=== PATIENT | male | born 1985 | race Caucasian/White ===

== ENCOUNTER 2021-05-21 14:09 | Emergency (ER) | payer BC ==
[2021-05-21] MEDS ORDERED: ONDANSETRON 4 MG/2 ML VIAL ONE (15:06)
[2021-05-21] MEDS ORDERED: MORPHINE 4 MG/ML SYR ONE (15:06)
[2021-05-21] MEDS ORDERED: NA CHLORIDE 0.9% 1,000 ML ONE ×2 (15:06→17:23)
[2021-05-21 15:12] LABS: Absolute Lymphocytes (CBC) 1.3 K/uL (0.7-4.9); Basophils % 0.2 % (0-1.3); Hematocrit 46.2 % (39.6-49.0); Lymphocytes % 5.9 % (15.3-44.8); MPV 8.3 fL (7.6-11.3); RBC Red Blood Cell Count 5.02 M/uL (4.33-5.43)
[2021-05-21] MEDS ORDERED: KETOROLAC 30 MG/ML INJ ONE (16:08)
[2021-05-21 16:11] LABS: ALT/SGPT 41 U/L (12-78); AST/SGOT 25 U/L (15-37); Albumin 4.4 g/dL (3.4-5.0); Alkaline Phosphatase 80 U/L (45-117); BUN Blood Urea Nitrogen 20 mg/dL (7-18); Bicarbonate 24 mmol/L (21-32); Bilirubin Direct 0.2 mg/dL (0-0.2); Bilirubin Total 0.8 mg/dL (0.2-1.0); Glucose Level 77 mg/dL (74-106); Lipase 28 U/L (73-393); Potassium 3.8 mmol/L (3.5-5.1); Protein, Total 8.2 g/dL (6.4-8.2); Sodium Level 144 mmol/L (136-145)
--- NOTE | 2021-05-21 16:43 | RAD REPORT ---
EXAM DESCRIPTION: CTAbdomen Pelvis W Contrast - 05/21/2021 4:28 pm CLINICAL HISTORY: Abdominal pain. ABD PAIN COMPARISON: No comparisons TECHNIQUE: Biphasic CT imaging of the abdomen and pelvis was performed with 100 ml non-ionic IV cont rast. All CT scans are performed using dose optimization technique as appropriate and may include automated exposure control or mA/KV adjustment according to patient size. FINDINGS: The lung bases are clear. The liver, spleen, pancreas, adrenal glands and kidneys are within normal limits. No bowel obstruction, free air, free fluid or abscess. The appendix is normal. No evidence of signi ficant lymphadenopathy. No suspicious bony findings. IMPRESSION: No acute intra-abdominal or pelvic finding.
[2021-05-21] MEDS ORDERED: METOCLOPRAMIDE 10 MG/2mL INJ ONE (17:24)
--- NOTE | 2021-05-21 18:43 | ER ---
Nurse's Notes [facility] Name: Artemio Pillai Age: 35 yrs Sex: Male : 1985 Arrival Date: 05/21/2021 Time: 14:13 Bed 15 Private MD: Diagnosis: Vomiting;Diarrhea, unspecified Presentation: 05/21 14:20 Chief complaint: Patient states: N/V/D today. Lower back pain also. Unknown fever. ll1 Coronavirus screen: Client denies travel out of the [place] in the last 14 days. At this time, the client does not indicate any symptoms associated with coronavirus-19. Ebola Screen: Patient denies travel to an Ebola-affected area in the 21 days before illness onset. Initial Sepsis Screen: Does the patient meet any 2 criteria? No. Patient's initial sepsis screen is negative. Does the patient have a suspected source of infection? Yes: Acute abdominal pain. Risk Assessment: Do you want to hurt yourself or someone else? Patient reports no desire to harm self or others. Onset of symptoms was May 21, 2021. 14:20 Method Of Arrival: Ambulatory [facility] 14:20 Acuity: [place] 3 ll1 Triage Assessment: 15:05 General: Appears. tr6 Historical: - Allergies: 14:22 Amoxicillin; ll1 - PMHx: 14:22 None; ll1 - PSHx: 14:22 None; ll1 - Immunization history:: Client reports receiving the 2nd dose of the Covid vaccine, Flu vaccine is up to date. - Social history:: Smoking status: Patient denies any tobacco usage or history of. Screenin:29 Abuse screen: Denies threats or abuse. Nutritional screening: No deficits noted. tr6 Tuberculosis screening: No symptoms or risk factors identified. Fall Risk None identified. Assessment: 15:05 General: Appears distressed, uncomfortable, Behavior is cooperative, restless. Pain: tr6 Complains of pain in pt c/o lower back pain currently, but states that he had abdominal pain earlier today. Neuro: No deficits noted. Level of Consciousness is awake. Cardiovascular: No deficits noted. Respiratory: No deficits noted. GI: Reports nausea. : No deficits noted. EENT: No deficits noted. Derm: No deficits noted. Musculoskeletal: No deficits noted. 16:19 Reassessment: pt transported to CT via wheelchair. tr6 16:32 Reassessment: pt returned to room from CT. tr6 Vital Signs: 14:20 BP 122 / 106; Pulse 74; Resp 17; Temp 97.6; Pulse Ox 97% ; Weight 61.23 kg; Height 5 ll1 ft. 7 in. (170.18 cm); Pain 8/10; 18:53 BP 100 / 67; Pulse 87; Resp 18; Temp 98; Pulse Ox 100% on R/A; tr6 14:20 Body Mass Index 21.14 (61.23 kg, 170.18 cm) ll1 ED Course: 14:13 Patient arrived in ED. ds1 14:22 Triage completed. ll1 14:23 Arm band placed on. ll1 14:23 Patient placed in an exam room, on a stretcher. ll1 14:24 Siddhartha Smart PA is PHCP. [facility] 14:24 Parish Smith MD is Attending Physician. [facility] 14:28 Iesha Nihcolas RN is Primary Nurse. tr6 14:29 Resting quietly. Awaiting ED provider evaluation. tr6 14:29 Patient has correct armband on for positive identification. Bed in low position. Call tr6 light in reach. Pulse ox on. NIBP on. Door closed. Noise minimized. Visitors limited. Lights dimmed. Moved to private room. 14:29 No provider procedures requiring assistance completed. tr6 15:04 Inserted saline lock: 20 gauge in right antecubital area, using aseptic technique. tr6 Blood collected. 16:28 CT Abd/Pelvis - IV Contrast Only In Process Unspecified. EDMS 18:53 IV discontinued, intact, bleeding controlled, No redness/swelling at site. Pressure ss dressing applied. Administered Medications: 15:04 Drug: NS 0.9% 1000 ml Route: IV; Rate: 1 bolus; Site: right antecubital; tr6 15:04 Drug: morphine 4 mg Route: IVP; Site: right antecubital; tr6 16:33 Follow up: Response: No adverse reaction tr6 15:04 Drug: Zofran (Ondansetron) 4 mg Route: IVP; Site: right antecubital; tr6 16:33 Follow up: Response: No adverse reaction tr6 15:49 Drug: Ketorolac 15 mg Route: IVP; Site: right antecubital; tr6 16:33 Follow up: Response: No adverse reaction tr6 17:08 Drug: Reglan (metoCLOPramide) 20 mg Route: IVP; Site: right antecubital; tr6 17:33 Follow up: Response: No adverse reaction tr6 17:08 Drug: NS 0.9% 1000 ml Route: IV; Rate: 1 bolus; Site: right antecubital; tr6 Outcome: 18:43 Discharge ordered by MD. sylvester 18:53 Discharged to home ambulatory, with family. 18:53 Condition: good 18:53 Discharge instructions given to patient, family, Instructed on discharge instructions, follow up and referral plans. Demonstrated understanding of instructions, follow-up care, Prescriptions given X 1. 18:54 Discharged to home ambulatory. tr6 18:54 Condition: improved 18:54 Discharge instructions given to patient, Instructed on discharge instructions, follow up and referral plans. Demonstrated understanding of instructions, follow-up care, medications, Prescriptions given X 1. 18:54 Patient left the ED. tr6 Signatures: Dispatcher [employer] EDMS Siddhartha Smart PA PA jmm Sanford, Demi ds1 Nereida Goss RN RN ss Robby Bryant RN RN ll1 Iesha Nicholas RN RN tr6
--- NOTE | 2021-05-21 18:44 | EDPHYS ---
Physician Documentation [facility] Name: Artemio Pillai Age: 35 yrs Sex: Male : 1985 Arrival Date: 05/21/2021 Time: 14:13 Bed 15 Private MD: ED Physician Parish Smith HPI: 05/21 14:34 This 35 yrs old Male presents to ER via Ambulatory with complaints of Back jmm Pain, Abdominal Pain. 14:34 The patient presents with abdominal pain. Onset: The symptoms/episode began/occurred jmm gradually, today. Associated signs and symptoms: Pertinent positives: diarrhea, vomiting. The symptoms are described as achy, intermittent. Modifying factors: The symptoms are alleviated by nothing, the symptoms are aggravated by nothing. It is unknown whether or not the patient has had similar symptoms in the past. Patient denies infectious exposure, recent abx use, denies recent travel. Historical: - Allergies: 14:22 Amoxicillin; ll1 - PMHx: 14:22 None; ll1 - PSHx: 14:22 None; ll1 - Immunization history:: Client reports receiving the 2nd dose of the Covid vaccine, Flu vaccine is up to date. - Social history:: Smoking status: Patient denies any tobacco usage or history of. ROS: 14:34 Constitutional: Negative for fever, chills, and weight loss, Cardiovascular: Negative jmm for chest pain, palpitations, and edema, Respiratory: Negative for shortness of breath, cough, wheezing, and pleuritic chest pain. 14:34 Abdomen/GI: Positive for abdominal pain, nausea and vomiting, diarrhea. 14:34 All other systems are negative. Exam: 14:34 Constitutional: This is a well developed, well nourished patient who is awake, alert, jmm and in no acute distress. Head/Face: atraumatic. Eyes: EOMI, no conjunctival erythema appreciated ENT: Moist Mucus Membranes Neck: Trachea midline, Supple Chest/axilla: Normal chest wall appearance and motion. Cardiovascular: Regular rate and rhythm. No edema appreciated Respiratory: Normal respirations, no respiratory distress appreciated 14:34 Back: Normal ROM Skin: General appearance color normal MS/ Extremity: Moves all extremities, no obvious deformities appreciated, no edema noted to the lower extremities Neuro: Awake and alert, normal gait Psych: Behavior is normal, Mood is normal, Patient is cooperative and pleasant 14:34 Abdomen/GI: Inspection: abdomen appears normal, Bowel sounds: normal, Palpation: soft, mild abdominal tenderness, in all quadrants. Vital Signs: 14:20 BP 122 / 106; Pulse 74; Resp 17; Temp 97.6; Pulse Ox 97% ; Weight 61.23 kg; Height 5 ll1 ft. 7 in. (170.18 cm); Pain 8/10; 18:53 BP 100 / 67; Pulse 87; Resp 18; Temp 98; Pulse Ox 100% on R/A; tr6 14:20 Body Mass Index 21.14 (61.23 kg, 170.18 cm) ll1 MDM: 14:32 Patient medically screened. [facility] 18:42 Data reviewed: vital signs, nurses notes. Counseling: I had a detailed discussion with [facility] the patient and/or guardian regarding: the historical points, exam findings, and any diagnostic results supporting the discharge/admit diagnosis, lab results, radiology results, the need for outpatient follow up, to return to the emergency department if symptoms worsen or persist or if there are any questions or concerns that arise at home. ED course: CT negative. Patient is able to tolerate PO in the ED. Patient is otherwise given strict return precautions. Patient understood and agrees with the plan of care. . 05/21 14:33 Order name: Basic Metabolic Panel; Complete Time: 16:12 [facility] 05/21 14:33 Order name: CBC with Diff [facility] 05/21 14:33 Order name: Hepatic Function; Complete Time: 16:12 [facility] 05/21 14:33 Order name: Lipase; Complete Time: 16:12 [facility] 05/21 15:29 Order name: CT Abd/Pelvis - IV Contrast Only; Complete Time: 16:45 [facility] 05/21 14:33 Order name: IV Saline Lock; Complete Time: 15:04 [facility] 05/21 14:33 Order name: Labs collected and sent; Complete Time: 15:04 [facility] 05/21 15:20 Order name: Labs - recollect needed: recollect green top/ hemolyzed; Complete Time: eb 15:38 05/21 16:53 Order name: PO challenge; Complete Time: 17:03 [facility] Administered Medications: 15:04 Drug: NS 0.9% 1000 ml Route: IV; Rate: 1 bolus; Site: right antecubital; tr6 15:04 Drug: morphine 4 mg Route: IVP; Site: right antecubital; tr6 16:33 Follow up: Response: No adverse reaction tr6 15:04 Drug: Zofran (Ondansetron) 4 mg Route: IVP; Site: right antecubital; tr6 16:33 Follow up: Response: No adverse reaction tr6 15:49 Drug: Ketorolac 15 mg Route: IVP; Site: right antecubital; tr6 16:33 Follow up: Response: No adverse reaction tr6 17:08 Drug: Reglan (metoCLOPramide) 20 mg Route: IVP; Site: right antecubital; tr6 17:33 Follow up: Response: No adverse reaction tr6 17:08 Drug: NS 0.9% 1000 ml Route: IV; Rate: 1 bolus; Site: right antecubital; tr6 Disposition: 18:58 Co-signature as Attending Physician, Parish Smith MD. rn Disposition Summary: 05/21/21 18:43 Discharge Ordered Location: Home [facility] Condition: Stable [facility] Diagnosis - Vomiting jm - Diarrhea, unspecified [facility] Followup: [facility] - With: Private Physician - When: 2 - 3 days - Reason: Recheck today's complaints, Continuance of care, Re-evaluation by your physician Discharge Instructions: - Discharge Summary Sheet [facility] - Food Choices to Help Relieve Diarrhea, Adult jmm - Vomiting, Adult jmm Forms: - Medication Reconciliation Form [facility] - Thank You Letter [facility] - Antibiotic Education [facility] - Prescription Opioid Use [facility] Prescriptions: - ondansetron 4 mg Oral tablet,disintegrating - place 1 tablet by TRANSLINGUAL route 3 times per day; 20 tablet; Refills: 0, [facility] Product Selection Permitted Signatures: Dispatcher [employer] EDSiddhartha Conteh PA PA jmm Parish Smith MD MD rn Botello, Elizabeth eb Lewis, Lynsay, RN RN ll1 Iesha Nicholas RN RN tr6
[2021-05-21 19:06] VITALS: BP 100/67; TEMP 98; O2SAT 100
[2021-05-21 20:43] LABS: Blood Morphology Comment NOT SEEN (NOT SEEN); Platelet Estimate ADEQ
== END 2021-05-21 18:54 | disposition home or self-care (01) ==
LOC: ER 14:09
DX: R19.7 Diarrhea, unspecified (principal); Z88.1 Allergy status to other antibiotic agents
CPT/HCPCS: 85025; 80048; 36415; 80076; 83690; 74177; 96375; 96374; 99284; Q9967; J2765; J7030 ×2; J2405